=== PATIENT | female | born 1995 | race African-American/Black ===

== ENCOUNTER 2022-01-30 05:15 | Emergency (ER) | payer MEDICAID ==
[~2022-01-30] VITALS: Ht 165.1 cm; Wt 60.0 kg
[2022-01-30 07:06] LABS: BASOPHILS % 0.6 % (0.0-2.0); EOSINOPHILS % 0.1 % (0.0-5.0); HEMATOCRIT. 32.5 % (36.0-48.0); HEMOGLOBIN. 10.9 g/dL (12.0-16.0); LYMPHOCYTES % 19.2 % (20.0-50.0); MEAN CORPUSCULAR HEMOGLOBIN 29.4 pg (28.0-32.0); MEAN CORPUSCULAR VOLUME 87.7 fL (81.0-99.0); MEAN PLATELET VOLUME 8.1 fl (7.4-10.4); MONOCYTES % 8.4 % (2.0-8.0); NEUTROPHILS % 71.7 % (40.0-76.0); PLATELET 262 x1000/uL (130-400); RED BLOOD CELL COUNT 3.71 mill/uL (4.2-5.4); RED CELL DISTRIBUTION WIDTH 16.7 % (11.6-14.6)
[2022-01-30 07:11] LABS: CHLORIDE 109 mEq/L (98-107)
[2022-01-30 07:33] LABS: HCG SCREEN NEGATIVE
[2022-01-30 08:00] VITALS: BP 122/60
== END 2022-01-30 08:12 | disposition home or self-care (01) ==
LOC: ER 05:15
DX: F41.0 Panic disorder [episodic paroxysmal anxiety] (principal); D64.9 Anemia, unspecified; F41.9 Anxiety disorder, unspecified
CPT/HCPCS: 36415; 71045; 80053; 84703; 85025; 99284